=== PATIENT | male | born 1965 | race Caucasian/White ===

== ENCOUNTER 2020-05-03 07:38 | Emergency (ER) | payer OTHER ==
[~2020-05-03] VITALS: Ht 182.9 cm; Wt 100.0 kg
[2020-05-03 07:41] VITALS: Ht 182.9 cm; Wt 100.0 kg
[2020-05-03] MEDS ORDERED: LIPITOR10 MG (07:43)
[2020-05-03] MEDS ORDERED: OMEPRAZOLE20 M1 (07:43)
[2020-05-03] MEDS ORDERED: GENTAMICIN 0.3 %5 ML (07:44)
[2020-05-03 08:52] LABS: BASOPHILS 0.3 % (0-2); EOSINOPHILS 1.5 % (0-7); HEMATOCRIT 41.5 % (42.0-54.0); HEMOGLOBIN 14.7 g/dL (13.5-17.5); IMMATURE GRANULOCYTES 0.2 % (0-5); LYMPHOCYTES 18.7 % (15-50); MCH 33.5 pg (26.0-34.0); MCHC 35.4 g/dL (31.0-37.0); MCV 94.5 fL (80.0-100.0); MONOCYTES 9.2 % (2-11); NEUTROPHILS 70.1 % (40-80); PLATELET COUNT 184 10x3/uL (130-400); RBC 4.39 10x6/uL (4.20-6.10); RDW 11.7 % (11.5-14.5); WBC 6.2 10x3/uL (4.8-10.8)
[2020-05-03 09:00] LABS: ANION GAP 10.3 mmol/L (8-16); CALCIUM 8.8 mg/dL (8.5-10.1); CARBON DIOXIDE 26.5 mmol/L (21.0-32.0); CREATININE - SERUM 1.1 mg/dL (0.6-1.3); POTASSIUM - SERUM 3.8 mmol/L (3.5-5.1)
[2020-05-03 09:06] LABS: ALBUMIN 3.7 g/dL (3.4-5.0); BILIRUBIN - TOTAL 0.47 mg/dL (0.2-1.3)
[2020-05-03] MEDS ORDERED: KEFLEX500 MG PO (10:20)
[2020-05-03] MEDS ORDERED: ERYTHROMYCIN OPT1 GM LEFT EYE (10:20)
[2020-05-03] MEDS ORDERED: CLEOCIN HCL300 MG PO (10:20)
[2020-05-03 11:26] VITALS: BP 136/72
== END 2020-05-03 11:27 | disposition other institution (70) ==
LOC: D.ER 07:38
PROVIDERS: Family Medicine
DX: L03.213 Periorbital cellulitis (principal); H10.9 Unspecified conjunctivitis; K21.9 Gastro-esophageal reflux disease without esophagitis